=== PATIENT | male | born 1965 | race Two or more races ===

== ENCOUNTER 2020-01-12 05:25 | Day surgery (SDC) | payer OTHER ==
[~2020-01-12 05:25] MED LIST: APRESOLINE 10MG10 MG PO; FAMOTIDINE40 MG PO; FOLIC ACID20 MG PO; MILLIPRED5 MG PO; MYFORTIC360 MG PO; NORVASC2.5 M1 PO; PROGRAF1 MG PO; SEPTRA PO; SYNTHROID88 MCG PO; ZOCOR20 MG PO
[2020-01-12] MEDS ORDERED: PERCOCET 5-3251 EACH PO (11:26)
== END 2020-01-12 15:21 | disposition home or self-care (01) ==
LOC: CIR.AMB 05:25
PROVIDERS: ATTEND Surgery
DX: T83.410A Breakdown (mechanical) of implanted penile prosthesis, initial encounter (principal)
CPT/HCPCS: 54410; C1813

== ENCOUNTER 2023-04-29 11:27 | Outpatient (CLI) | payer OTHER ==
[~2023-04-29 11:27] MED LIST changes: +PERCOCET 5-3251 EACH PO
== END 2023-04-29 11:31 | disposition home or self-care (01) ==
LOC: SONOGRAMA 11:27
PROVIDERS: ATTEND Pathology Anatomic Pathology & Clinical Pathology
DX: E04.2 Nontoxic multinodular goiter (principal)